=== PATIENT | male | born 1955 | race Hispanic/Latino ===

== ENCOUNTER 2019-05-28 12:45 | Emergency (ER) | payer OTHER ==
[2019-05-28 13:17] LABS: BASOPHILS % (AUTO) 0.9 % (0.0-5.0); EOSINOPHILS % (AUTO) 2.6 % (0.0-8.0); HEMATOCRIT 25.9 % (42-54); LYMPHOCYTES % (AUTO) 17.9 % (21.0-51.0); MEAN CORPUSCULAR HEMOGLOBIN 17.7 pg (27.0-33.0); MEAN CORPUSCULAR HGB CONC 29.4 g/dL (32.0-36.0); MEAN CORPUSCULAR VOLUME 60.2 fL (79-99); MONOCYTES % (AUTO) 7.6 % (3.0-13.0); NUCLEATED RED BLOOD CELLS 0.1 % (0.0-0.19); PLATELET COUNT (AUTO) 246 K/uL (130-400); RED CELL DISTRIBUTION WIDTH 22.2 % (11.0-15.5); WHITE BLOOD COUNT (AUTO) 4.3 K/uL (4.8-10.8)
[2019-05-28 13:27] LABS: CREATININE 0.9 mg/dL (0.5-1.5); POTASSIUM 3.4 mmol/L (3.5-5.1)
[2019-05-28 13:33] LABS: ALBUMIN 3.4 g/dL (3.5-5.0); BILIRUBIN,DIRECT 0.1 mg/dL (0.0-0.3); BILIRUBIN,TOTAL 0.5 mg/dL (0.2-1.0); TOTAL PROTEIN, SERUM 7.6 g/dL (6.0-8.3)
[2019-05-28] MEDS ORDERED: DEXAMETHASONE SOD PHOSPHATE 10MG/ML 1ML VIAL ONE (14:46)
== END 2019-05-28 16:55 | disposition home or self-care (01) ==
LOC: EDH 12:45
DX: M79.672 Pain in left foot (principal); D64.9 Anemia, unspecified
CPT/HCPCS: 36415; 73630; 80048; 80076; 84550; 85025; 96372; 99285; J1100

== ENCOUNTER 2024-01-08 22:26 | Emergency (ER) | payer OTHER ==
[~2024-01-08] VITALS: Ht 172.7 cm; Wt 116.1 kg
[2024-01-08] MEDS: CYCLOBENZAPRINE HCL 10 MG TABLET PO ONE (22:48)
[2024-01-08] MEDS: MORPHINE 4 MG SYG IM ONE (22:49)
[2024-01-09] MEDS ORDERED: CYCL7.5T27 PO (00:42)
[2024-01-09] MEDS ORDERED: ACET-66 PO (00:42)
[2024-01-09] MEDS ORDERED: IBUP-2070 PO (00:42)
[2024-01-09 00:49] VITALS: BP 156/86; PULSE 60; RESP 17; O2SAT 97
== END 2024-01-09 01:17 | disposition home or self-care (01) ==
LOC: EDH 22:26
DX: S16.1XXA Strain of muscle, fascia and tendon at neck level, initial encounter (principal); S39.012A Strain of muscle, fascia and tendon of lower back, initial encounter; M25.521 Pain in right elbow; E78.00 Pure hypercholesterolemia, unspecified; Z79.899 Other long term (current) drug therapy; W01.0XXA Fall on same level from slipping, tripping and stumbling without subsequent striking against object, initial encounter; Y93.89 Activity, other specified; Y92.512 Supermarket, store or market as the place of occurrence of the external cause; Y99.8 Other external cause status
CPT/HCPCS: 99285; 70450; 73070; 72125; 72131; 72128; 96372; J2270